=== PATIENT | female | born 1990 | race African-American/Black ===

== ENCOUNTER 2017-10-04 14:46 | Emergency (ER) | payer OTHER ==
--- NOTE | 2017-10-04 15:50 | PDOC ---
Rapid Medical Evaluation Time Seen by Provider: 10/04/17 15:47 Medical Evaluation: Allergies Allergy/AdvReac Type Severity Reaction Status Date / Time No Known Allergies Allergy Verified 06/19/15 16:47 10/04/17 15:48 I have performed a brief in-person evaluation of this patient. The patient presents with a chief complaint of: Body aches w/ cough w/ fever of 104 since yesterday Pertinent physical exam findings:Febrile to 102 and tachy I have ordered the following:flu and tylenol The patient will proceed to the ED for further evaluation. 10/04/17 15:52
[2017-10-04] MEDS ORDERED: ACETAMINOPHEN 325 MG TABLET (FP) PO ONE (15:51)
[2017-10-04 15:53] VITALS: BP 104/54; BMI 27.3
--- NOTE | 2017-10-04 16:49 | PDOC ---
History of Present Illness - General Chief Complaint: Cold Symptoms Stated Complaint: BODY ACHES/FEVER Time Seen by Provider: 10/04/17 15:47 History Source: Patient Exam Limitations: No Limitations - History of Present Illness Initial Comments: 10/04/17 17:45 46-year-old female presents the ED with complaints of body ache fever, myalgia and cough since yesterday. 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 Patient has no other complaints at this time. Timing/Duration: reports: yesterday Severity: reports: moderate Modifying Factors: improves with: coughing Associated Symptoms: reports: cough, fever/chills, headache Past History - Travel Traveled outside of the country in the last 30 days: No - Past Medical History Allergies/Adverse Reactions: Allergies Allergy/AdvReac Type Severity Reaction Status Date / Time No Known Allergies Allergy Verified 06/19/15 16:47 Home Medications: Ambulatory Orders Ketorolac Tromethamine [Toradol] 10 mg PO QID PRN #20 tablet 06/19/15 COPD: No - Suicide/Smoking/Psychosocial Hx Smoking History: Never smoked Have you smoked in the past 12 months: No Information on smoking cessation initiated: No Hx Alcohol Use: No Drug/Substance Use Hx: No Substance Use Type: None Patient Lives Alone: No Review of Systems - Review of Systems Constitutional: Yes: Chills, Fever, Weakness HEENTM: No: Symptoms Reported Respiratory: Yes: Cough ABD/GI: No: Symptoms Reported Musculoskeletal: No: Symptoms Reported Integumentary: No: Symptoms Reported Neurological: No: Symptoms reported *Physical Exam - Vital Signs Last Vital Signs Temp Pulse Resp BP Pulse Ox 102.4 F H 123 H 18 104/54 97 10/04/17 15:50 10/04/17 15:50 10/04/17 15:50 10/04/17 15:50 10/04/17 15:50 - Physical Exam General Appearance: Yes: Nourished, Appropriately Dressed. No: Apparent Distress HEENT: positive: EOMI, CLARITA, TMs Normal, Pharynx Normal. negative: Pale Conjunctivae Neck: positive: Supple Respiratory/Chest: positive: Lungs Clear, Normal Breath Sounds. negative: Respiratory Distress, Accessory Muscle Use Cardiovascular: positive: Regular Rhythm, Tachycardia. negative: Murmur Gastrointestinal/Abdominal: positive: Soft. negative: Tenderness Extremity: positive: Normal Capillary Refill. negative: Pedal Edema Integumentary: positive: Normal Color, Warm, Moist Neurologic: positive: Motor Strength 5/5 (ambulatory) ED Treatment Course - Medications Given in the ED: ED Medications Discontinued Medications Generic Name Dose Route Start Last Admin Trade Name Hermesq PRN Reason Stop Dose Admin Acetaminophen 650 mg 10/04/17 15:51 10/04/17 15:53 Tylenol - PO 10/04/17 15:52 650 mg ONCE ONE Administration Medical Decision Making - Medical Decision Making 10/04/17 17:47 Patient with URI symptoms concerning for influenza. Influenza swab was sent in triage. Patient also ordered for Tylenol secondary to fever. Patient was influenza negative but due to patient's work history and heard daughter who shehas accompanied and tested positive for influenza. Patient be treated with Tamiflu *DC/Admit/Observation/Transfer Diagnosis at time of Disposition: Influenza - Discharge Dispostion Disposition: HOME Condition at time of disposition: Improved - Referrals Referrals: Yaakov Browne MD [Primary Care Provider] - - Patient Instructions Printed Discharge Instructions: DI for Influenza -- Adult Additional Instructions: Please take Tamiflu as prescribed until completed. Drink plenty of fluids and take Motrin or Tylenol for fever or pain. - Post Discharge Activity
[2017-10-04 17:44] VITALS: PULSE 110; TEMP 98.1
== END 2017-10-04 17:52 | disposition home or self-care (01) ==
LOC: JERFT 14:46
DX: J11.1 Influenza due to unidentified influenza virus with other respiratory manifestations (principal)
CPT/HCPCS: 87804; 99281-25